=== PATIENT | male | born 1975 | race Caucasian/White ===

== ENCOUNTER 2021-10-31 16:03 | Observation (INO) | payer BC ==
[2021-10-31 17:04] LABS: CHLORIDE,CL 99 mmol/L (98-107); SODIUM,NA 133 mmol/L (136-145)
[2021-10-31 17:24] LABS: HEMOGLOBIN A1C 6.4 % (4.3-5.7)
[2021-10-31 18:10] LABS: CORONAVIRUS COVID-19 NAA NEGATIVE (NEGATIVE); RESPIRATORY SYNCYTIAL VIR NAA NEGATIVE (NEGATIVE)
[2021-10-31] MEDS ORDERED: Sodium Chloride 0.9% 10 ML Syringe FLUSH PRN (18:34)
[2021-10-31] MEDS ORDERED: cefTRIAXone 2 GM in Sodium Chloride 0.9% 100 ML IV ONE (18:35)
[2021-10-31] MEDS ORDERED: Sodium Chloride 0.9% 1,000 ML IV ONE ×2 (20:00→22:00)
[2021-10-31] MEDS ORDERED: Acetaminophen 500 MG Tab PO PRN (20:07)
[2021-11-01] MEDS: Sodium Chloride 0.9% 1,000 ML IV SCH ×3 (03:25→19:25)
[2021-11-01] MEDS: Acetaminophen 325 MG Tab PO PRN ×3 (03:25→22:12)
[2021-11-01] MEDS: Venlafaxine 75 MG Cap.ER PO SCH (07:41)
[2021-11-01] MEDS: Atenolol 50 MG Tab PO SCH (07:41)
[2021-11-01] MEDS: busPIRone 15 MG Tab PO SCH (07:42)
[2021-11-01 07:47] LABS: CHLORIDE,CL 103 mmol/L (98-107); SODIUM,NA 134 mmol/L (136-145)
[2021-11-01 07:57] LABS: ANION GAP 11.7 meq/L (7-15)
[2021-11-01] MEDS: Enoxaparin 40 MG/0.4 ML Syringe SUBCUT SCH (12:54)
[2021-11-01] MEDS: diphenhydrAMINE 25 MG Cap PO PRN (16:45)
[2021-11-01 17:28] LABS: CORONAVIRUS COVID-19 NAA NEGATIVE (NEGATIVE); RESPIRATORY SYNCYTIAL VIR NAA NEGATIVE (NEGATIVE)
[2021-11-01] MEDS ORDERED: cefTRIAXone 1 GM in Sodium Chloride 0.9% 100 ML IV ONE ×2 (18:00→20:00)
[2021-11-02] MEDS: Acetaminophen 325 MG Tab PO PRN (03:38)
[2021-11-02] MEDS: Sodium Chloride 0.9% 1,000 ML IV SCH ×3 (03:39→20:32)
[2021-11-02] MEDS ORDERED: cefTRIAXone 1 GM in Sodium Chloride 0.9% 100 ML IV ONE ×3 (06:00→18:00)
[2021-11-02] MEDS: busPIRone 15 MG Tab PO SCH (07:09)
[2021-11-02] MEDS: Venlafaxine 75 MG Cap.ER PO SCH (07:10)
[2021-11-02] MEDS: Atenolol 50 MG Tab PO SCH (07:10)
[2021-11-02] MEDS: diphenhydrAMINE 25 MG Cap PO PRN (07:13)
[2021-11-02 07:55] LABS: CHLORIDE,CL 105 mmol/L (98-107); SODIUM,NA 136 mmol/L (136-145)
[2021-11-02] MEDS: Enoxaparin 40 MG/0.4 ML Syringe SUBCUT SCH (12:04)
[2021-11-03] MEDS: Sodium Chloride 0.9% 1,000 ML IV SCH (04:32)
[2021-11-03] MEDS: Venlafaxine 75 MG Cap.ER PO SCH (07:23)
[2021-11-03] MEDS: busPIRone 15 MG Tab PO SCH (07:23)
[2021-11-03] MEDS: Atenolol 50 MG Tab PO SCH (07:23)
[2021-11-03 07:49] LABS: ANION GAP 12.5 meq/L (7-15); CHLORIDE,CL 108 mmol/L (98-107); SODIUM,NA 139 mmol/L (136-145)
[2021-11-03] MEDS ORDERED: cefTRIAXone 1 GM in Sodium Chloride 0.9% 100 ML IV ONE (09:00)
== END 2021-11-03 11:30 | disposition home or self-care (01) ==
LOC: LL.ED 16:03 → LL.MS 19:21
PROVIDERS: ADMIT Emergency Medicine; ATTEND Emergency Medicine
DX: N39.0 Urinary tract infection, site not specified (principal); I10 Essential (primary) hypertension; F41.8 Other specified anxiety disorders; E66.09 Other obesity due to excess calories; R73.09 Other abnormal glucose; Z79.899 Other long term (current) drug therapy; Z20.822 Contact with and (suspected) exposure to COVID-19
CPT/HCPCS: 0241U; 36415; 80048; 80053; 81001; 81003; 83036; 83605; 83735; 85025; 87040; 87086; 96365; 96366; 96372; 96376; 99284; A9270; G0378; J0696; J1650; J7030

== ENCOUNTER 2022-11-02 08:32 | Day surgery (SDC) | payer BC ==
[2022-11-02] MEDS ORDERED: Midazolam 1 MG/ML 2 ML SDV ONE (08:39)
[2022-11-02] MEDS ORDERED: Propofol 200 MG/20 ML SDV ONE (08:39)
[2022-11-02] MEDS ORDERED: Sodium Chloride 0.9% 10 ML Syringe FLUSH PRN (08:45)
[2022-11-02] MEDS: Lactated Ringers 1,000 ML IV SCH (08:49)
== END 2022-11-02 11:25 | disposition home or self-care (01) ==
LOC: LL.SDS 08:32
PROVIDERS: ATTEND Surgery
DX: Z12.11 Encounter for screening for malignant neoplasm of colon (principal); K63.5 Polyp of colon; F41.9 Anxiety disorder, unspecified; F32.A Depression, unspecified; I10 Essential (primary) hypertension; I73.9 Peripheral vascular disease, unspecified; E66.01 Morbid (severe) obesity due to excess calories; R73.01 Impaired fasting glucose; G62.9 Polyneuropathy, unspecified; Z87.891 Personal history of nicotine dependence; Z68.41 Body mass index [BMI] 40.0-44.9, adult; Z68.36 Body mass index [BMI] 36.0-36.9, adult
CPT/HCPCS: 45385; J2250; J2704; J7120

== ENCOUNTER 2024-09-10 18:46 | Emergency (ER) | payer BC ==
[2024-09-10 19:21] LABS: EOSINOPHILS ABSOLUTE AUTO 0.03 K/uL (0.00-0.50); EOSINOPHILS PERCENT AUTO 0.8 % (0.0-5.0); HEMATOCRIT 40.1 % (39.0-49.0); HEMOGLOBIN 14.1 g/dL (13.1-16.8); LYMPHOCYTES ABSOLUTE AUTO 0.93 K/uL (0.50-3.50); LYMPHOCYTES PERCENT AUTO 23.3 % (10.0-50.0); MEAN CORPUSCULAR HEMOGLOBIN 30.1 pg (28.2-33.3); MEAN CORPUSCULAR HGB CONC 35.2 g/dL (31.7-36.0); MEAN CORPUSCULAR VOLUME 85.5 fL (84.0-98.0); MONOCYTES ABSOLUTE AUTO 0.58 K/uL (0.00-1.00); MONOCYTES PERCENT AUTO 14.5 % (2.0-14.0); NEUTROPHILS ABSOLUTE AUTO 2.45 K/uL (1.40-7.00); NEUTROPHILS PERCENT AUTO 61.4 % (45.0-80.0); PLATELET COUNT,PLT 154 K/uL (150-350); RED BLOOD CELL COUNT 4.69 M/uL (4.33-5.41); RED CELL DISTRIBUTION WIDTH 11.9 % (11.2-14.1)
[2024-09-10] MEDS: Benzonatate 100 MG Cap PO ONE (19:45)
[2024-09-10] MEDS: Codeine/guaiFENesin 10-100 MG/5 ML Syrup 5 ML Cup PO ONE (19:45)
== END 2024-09-10 19:47 | disposition home or self-care (01) ==
LOC: LL.ED 18:46
DX: B34.9 Viral infection, unspecified (principal); I10 Essential (primary) hypertension; E66.9 Obesity, unspecified; Z87.891 Personal history of nicotine dependence; Z79.899 Other long term (current) drug therapy
CPT/HCPCS: 36415; 71046; 85025; 87428-QW; 99283; 99284; A9270-GY

== ENCOUNTER 2025-06-03 14:07 | Emergency (ER) | payer BC | END 2025-06-03 15:15 | disposition home or self-care (01) | LOC: LL.ED 14:07 | DX: S71.152A Open bite, left thigh, initial encounter (principal); Z79.899 Other long term (current) drug therapy; W54.0XXA Bitten by dog, initial encounter | CPT/HCPCS: 99283 ==